=== PATIENT | female | born 1965 | race Caucasian/White ===

== ENCOUNTER 2018-07-20 13:22 | Emergency (ER) | payer OTHER ==
--- NOTE | 2018-07-20 13:57 | EDPHY ---
H & P Stated Complaint: epigastric pain Time Seen by Provider: 07/20/18 13:36 HPI/ROS: CHIEF COMPLAINT: Epigastric pain HISTORY OF PRESENT ILLNESS: The patient is a 53-year-old female who comes to the emergency department complaining of epigastric pain. She states that it began over the weekend. At that time she was skiing and noticed some worsening when she was caring her skis. It seemed to resolve by the end of the day. She then noticed some pain between her shoulder blades yesterday but it seems very mild and resolved. She attributed it to a weightlifting class she has been taking. Today however she developed some epigastric pain and nausea and diaphoresis as well as some tingling in her right hand. No dizziness. No syncope. No palpitations. No shortness of breath. No fever. These symptoms today have now resolved. They began about 2 hr ago while at work. No focal weakness or deficits. She reports that she did have a stress test and nuclear stress test 3 years ago that were normal. Severity: Moderate Modifying factors: Resolved spontaneously REVIEW OF SYSTEMS: Constitutional: denies: chills, fever, recent illness, recent injury EENTM: denies: blurred vision, double vision, nose congestion Respiratory: denies: cough, shortness of breath Cardiac: See HPI denies: irregular heart rate, lightheadedness, palpitations Gastrointestinal/Abdominal: denies: abdominal pain, diarrhea, nausea, vomiting, blood streaked stools Genitourinary: denies: dysuria, frequency, hematuria, pain Musculoskeletal: denies: joint pain, muscle pain Skin: denies: lesions, rash, jaundice, bruising Neurological: denies: headache, numbness, paresthesia, tingling, dizziness, weakness Hematologic/Lymphatic: denies: blood clots, easy bleeding, easy bruising Immunologic/allergic: denies: HIV/AIDS, transplant 10 systems reviewed and negative except as noted EXAM: GENERAL: Well-appearing, well-nourished and in no acute distress. HEAD: Atraumatic, normocephalic. EYES: Pupils equal round and reactive to light, extraocular movements intact, sclera anicteric, conjunctiva are normal. ENT: TMs normal, nares patent, oropharynx clear without exudates. Moist mucous membranes. NECK: Normal range of motion, supple without lymphadenopathy or JVD. LUNGS: Breath sounds clear to auscultation bilaterally and equal. No wheezes rales or rhonchi. HEART: Regular rate and rhythm without murmurs, rubs or gallops. ABDOMEN: Soft, nontender, normoactive bowel sounds. No guarding, no rebound. No masses appreciated. BACK: No CVA tenderness, no spinal tenderness, step-offs or deformities EXTREMITIES: Normal range of motion, no pitting or edema. No clubbing or cyanosis. NEUROLOGICAL: Cranial nerves II through XII grossly intact. Normal speech, normal gait. 5/5 strength, normal movement in all extremities, normal sensation , normal reflexes PSYCH: Normal mood, normal affect. SKIN: Warm, dry, normal turgor, no visible rashes or lesions. Source: Patient Exam Limitations: No limitations - Personal History Current Tetanus/Diphtheria Vaccine: Yes - Medical/Surgical History Hx Asthma: No Hx Chronic Respiratory Disease: No Hx Diabetes: No Hx Cardiac Disease: No Hx Renal Disease: No Hx Cirrhosis: No Hx Alcoholism: No Hx HIV/AIDS: No Hx Splenectomy or Spleen Trauma: No Other PMH: Synthroid, - Family History Significant Family History: No pertinent family hx - Social History Smoking Status: Never smoked Alcohol Use: Sober Constitutional: Initial Vital Signs Temperature (C) 36.0 C 07/20/18 13:27 Heart Rate 68 07/20/18 13:27 Respiratory Rate 18 07/20/18 13:27 Blood Pressure 159/78 H 07/20/18 13:27 O2 Sat (%) 98 07/20/18 13:27 O2 Delivery Mode Room Air Allergies/Adverse Reactions: ampicillin Allergy (Verified 07/20/18 13:27) Home Medications: Medication Instructions Recorded Nature-Throid 05/23/13 SYNTHROID 05/23/13 Ondansetron Odt [Zofran Odt 4 mg 4 mg PO Q4 PRN #20 tab 07/20/18 (RX)] Medical Decision Making - Diagnostics EKG Interpretation: An EKG obtained and was read and documented in trace view. Please see trace view for full reading and report. Sinus rhythm, no acute ischemic changes Imaging: Discussed imaging studies w/ call center associate Radiologist ED Course/Re-evaluation: We discussed the patient's lab work and ultrasound which are reassuring. X-ray and urinalysis still pending. She states that she feels better and does not wish to stay longer. She is eager to go home. We discussed her continued low risk for cardiac disease. She understands this and does not wish to have repeat testing done. We engaged in shared decision making. We had a long discussion about indications for returning. She feels comfortable with this plan. She will follow up with her primary doctor. She is thinking that her symptoms are primarily due to menopause. She is currently asymptomatic. Differential Diagnosis: Partial list of the Differential diagnosis considered include but were not limited to; enteritis, GERD, nausea, epigastric pain and although unlikely based on the history and physical exam, I also considered acute coronary disease , dissection, biliary disease, PE, pneumonia. I discussed these differential diagnoses and the plan with the patient as well as the usual and expected course. The patient understands that the diagnosis is provisional and that in medicine we are not always correct and that further workup is often warranted. Usual and customary warnings were given. All of the patient's questions were answered. The patient was instructed to return to the emergency department should the symptoms at all worsen or return, otherwise to followup with the physician as we discussed. - Data Points Laboratory Results: Laboratory Results 07/20/18 13:05 07/20/18 13:05 Point of Care Test Results: Chemistry 07/20/18 14:09 POC Troponin I 0.00 ng/mL ng/mL (0.00-0.08) Departure - Departure Disposition: Home, Routine, Self-Care Clinical Impression: Epigastric pain, Nausea Condition: Fair Instructions: Acute Nausea and Vomiting (ED), Epigastric Pain (ED) Referrals: ELMA WILSON [Other] - As per Instructions Prescriptions: Ondansetron Odt [Zofran Odt 4 mg (RX)] 4 mg PO Q4 PRN #20 tab PRN Reason: Nausea & Vomiting
--- NOTE | 2018-07-20 13:58 | CPEKG ---
Test Reason : OPEN Blood Pressure : / mmHG Vent. Rate : 063 BPM Atrial Rate : 061 BPM P-R Int : 146 ms QRS Dur : 088 ms QT Int : 426 ms P-R-T Axes : 055 012 023 degrees QTc Int : 437 ms Sinus rhythm Confirmed by Elisabeth Frank ([id number]) on 07/20/2018 1:57:32 PM Referred By: ELISABETH FRANK Confirmed By:Elisabeth Frank
[2018-07-20 14:17] LABS: PLATELET COUNT 257 10^3/uL (150-400)
[2018-07-20 15:12] VITALS: BP 134/64
== END 2018-07-20 15:12 | disposition home or self-care (01) ==
DX: R10.13 Epigastric pain (principal); R11.0 Nausea
CPT/HCPCS: 84484-ER